=== PATIENT | female | born 1985 | race Caucasian/White ===

== ENCOUNTER 2016-05-18 22:30 | Emergency (ER) | payer BC, OTHER ==
[2016-05-18 22:43] VITALS: BP 113/58; PULSE 89; TEMP 98; BMI 22.8
--- NOTE | 2016-05-18 22:49 | PDOC ---
History of Present Illness - History of Present Illness Initial Comments: 05/18/16 22:53 Patient is a 31 year old female, with recent medical hx of D&C (05/18/16), who is presenting to the ED with fever, body aches, nausea, abdominal pain and diarrhea since this afternoon. The patient reports having generalized abdominal pain that is localized to her mid-abdomen. She reports having some nausea and episodes of diarrhea but no vomiting. The patient also took Advil today at 4PM. Patient was hyperventilating on arrival and complains of cramping to her hands. Denies cough or sick contacts. <An Miles - Last Filed: 05/18/16 22:53> <Christina Duke - Last Filed: 05/19/16 00:57> - General Chief Complaint: Diarrhea Stated Complaint: SYNCOPE Time Seen by Provider: 05/18/16 22:36 Past History <An Miles - Last Filed: 05/18/16 22:53> - Immunization History Immunization Up to Date: No - Psycho/Social/Smoking Cessation Hx Anxiety: No Suicidal Ideation: No Smoking History: Never smoked Information on smoking cessation initiated: No Hx Alcohol Use: No Drug/Substance Use Hx: No Substance Use Type: None <Christina Duke - Last Filed: 05/19/16 00:57> - Past Medical History Allergies/Adverse Reactions: Allergies Allergy/AdvReac Type Severity Reaction Status Date / Time No Known Allergies Allergy Verified 05/18/16 22:44 Home Medications: Ambulatory Orders Levothyroxine Sodium [Synthroid] 88 mcg PO DAILY 05/18/16 Ondansetron [Zofran Odt -] 4 mg SL TID PRN #12 od.tablet 05/19/16 Review of Systems - Review of Systems Comments:: 05/18/16 22:58 CONSTITUTIONAL: Present: fever, chills Absent: diaphoresis, generalized weakness, malaise, loss of appetite HEENT: Absent: rhinorrhea, nasal congestion, throat pain, throat swelling, difficulty swallowing, mouth swelling, ear pain, eye pain, visual changes CARDIOVASCULAR: Absent: chest pain, syncope, palpitations, irregular heart rate, lightheadedness , peripheral edema RESPIRATORY: Absent: cough, shortness of breath, dyspnea with exertion, orthopnea, wheezing, stridor, hemoptysis GASTROINTESTINAL: Present: abdominal pain, nausea, diarrhea Absent: abdominal distension, vomiting, constipation, melena, hematochezia GENITOURINARY: Absent: dysuria, frequency, urgency, hesitancy, hematuria, flank pain, genital pain MUSCULOSKELETAL: Present: myalgia, hand cramping Absent: arthralgia, joint swelling SKIN: Absent: rash, itching, pallor HEMATOLOGIC/IMMUNOLOGIC: Absent: easy bleeding, easy bruising, lymphadenopathy, frequent infections ENDOCRINE: Absent: unexplained weight gain, unexplained weight loss, heat intolerance, cold intolerance NEUROLOGIC: Absent: headache, focal weakness or paresthesia, dizziness, unsteady gait, seizure, mental status changes, bladder or bowel incontinence. PSYCHIATRIC: Absent: anxiety, depression, suicidal or homicidal ideation, hallucinations <An Miles - Last Filed: 05/18/16 22:53> *Physical Exam - Vital Signs Last Vital Signs Temp Pulse Resp BP Pulse Ox 98.0 F 89 18 113/58 100 05/18/16 22:41 05/18/16 22:41 05/18/16 22:41 05/18/16 22:41 05/18/16 22:41 - Physical Exam Comments: 05/18/16 23:00 GENERAL: Well developed, well nourished. Awake and alert. Hyperventilating. HEENT: Normocephalic, atraumatic. PERRLA, EOMI. No conjunctival pallor. Sclera are non- icteric. Moist mucous membranes. Oropharynx is clear. NECK: Supple. Full ROM. No JVD. Carotid pulses 2+ and symmetric, without bruits. No thyromegaly. No lymphadenopathy. CARDIOVASCULAR: Regular rate and rhythm. No murmurs, rubs, or gallops. Distal pulses are 2+ and symmetric. PULMONARY: No evidence of respiratory distress. Lungs clear to auscultation bilaterally. No wheezing, rales or rhonchi. ABDOMINAL: Soft. Non-tender. Non-distended. No rebound or guarding. No organomegaly. Normoactive bowel sounds. MUSCULOSKELETAL: Cramped hands. Normal range of motion at all joints. No bony deformities or tenderness. No CVA tenderness. EXTREMITIES: No cyanosis. No clubbing. No edema. No calf tenderness. SKIN: Warm and dry. Normal capillary refill. No rashes. No jaundice. NEUROLOGICAL: Alert, awake, appropriate. Cranial nerves 2-12 intact. Normal speech. Toes are down-going bilaterally. Gait is normal without ataxia. PSYCHIATRIC: Cooperative. Good eye contact. Appropriate mood and affect. <An Miles - Last Filed: 05/18/16 22:53> - Vital Signs Last Vital Signs Temp Pulse Resp BP Pulse Ox 98.0 F 89 18 113/58 100 05/18/16 22:41 05/18/16 22:41 05/18/16 22:41 05/18/16 22:41 05/18/16 22:41 <Christina Duke - Last Filed: 05/19/16 00:57> ED Treatment Course - LABORATORY CBC & Chemistry Diagram: 05/18/16 23:00 05/18/16 23:00 <Christina Duke - Last Filed: 05/19/16 00:57> Medical Decision Making - Medical Decision Making 05/19/16 00:47 31-year-old female brought in by ambulance after having abdominal cramping, diarrhea, body aches that started this afternoon. She was distressed and very anxious and had a hyperventilation with cramping in her hands Her daughter had a gastroenteritis a few days ago The patient says she had been , but had a demise and had a D&C by Dr. Corrigan last week She had taken Advil prior to arrival. She said she actually took it about 4 the afternoon. She had a benign abdominal exam with no focal tenderness, rebound or guarding She has stable vital signs CBC reveals WBC count of 10 Chemistries showed CO2 of 19, and the patient received a liter of IV fluids There was a mild hypokalemia of 3.3. The patient received potassium supplement -Negative Urinalysis Patient is calm now. She is not had any vomiting or diarrhea while in the emergency department. Impression viral illness/gastroenteritis <Christina Duke - Last Filed: 05/19/16 00:57> *DC/Admit/Observation/Transfer - Attestations Scribe Attestion: 05/18/16 23:03 Documentation prepared by An Miles, acting as senior medical director for Christina Duke MD. <An Miles - Last Filed: 05/18/16 22:53> <Christina Duke - Last Filed: 05/19/16 00:57> Diagnosis at time of Disposition: Gastroenteritis - Discharge Dispostion Disposition: HOME Condition at time of disposition: Stable - Prescriptions Prescriptions: Ondansetron [Zofran Odt -] 4 mg SL TID PRN #12 od.tablet PRN Reason: Nausea And/Or Vomiting - Patient Instructions Printed Discharge Instructions: DI for Viral Gastroenteritis -- Adult Additional Instructions: please pear picker your medication at your pharmacy return for any persistent or worsening symptoms
[2016-05-18] MEDS ORDERED: ONDANSETRON 4 MG/2 ML VIAL IVPUSH ONE (22:50)
[2016-05-18] MEDS ORDERED: SODIUM CHLORIDE 1,000 ML IV STA (22:50)
[2016-05-18] MEDS ORDERED: ONDANSETRON 4 MG/2 ML VIAL ONE (22:53)
[2016-05-18 23:09] LABS: BASOPHIL 0.2 % (0-2.0); EOSINOPHIL 0.2 % (0-4.5); MCH 30.3 pg (25.7-33.7); MCHC 33.4 g/dl (32.0-36.0); MEAN CELL VOLUME 90.6 fl (80-96); MEAN PLT VOLUME 9.4 fl (7.5-11.1); NEUTROPHILS 86.7 % (42.8-82.8); PLATELET COUNT 217 K/MM3 (134-434); RDW 12.5 % (11.6-15.6); WHITE BLOOD COUNT 10.3 K/mm3 (4.0-10.0)
[2016-05-18 23:36] LABS: ALBUMIN 3.5 g/dl (3.4-5.0); ALK PHOS 53 U/L (45-117); ANION GAP 13 (8-16); BILIRUBIN,TOTAL 0.6 mg/dL (0.2-1.0); CALCIUM 8.5 mg/dL (8.5-10.1); CO2 19 mmol/L (21-32); CREATININE 0.7 mg/dL (0.55-1.02); GLUCOSE,RANDOM 106 mg/dL (74-106); SGOT/AST 28 U/L (15-37); SGPT/ALT 24 U/L (12-78); TOT PROT 7.1 g/dl (6.4-8.2)
[2016-05-19] MEDS ORDERED: POTASSIUM CHLORIDE TABS 20 MEQ TABLET.ER (FP) PO ONE ×2 (00:09→00:20)
[2016-05-19] MEDS ORDERED: IBUPROFEN 600 MG TABLET (FP) PO ONE (00:12)
[2016-05-19 00:21] LABS: URINE APPEARANCE CLEAR; URINE BILIRUBIN NEGATIVE (NEGATIVE); URINE BLOOD NEGATIVE (NEGATIVE); URINE COLOR LTYELLOW; URINE GLUCOSE (UA) NEGATIVE (NEGATIVE); URINE KETONE NEGATIVE (NEGATIVE); URINE LEUK ESTERASE NEGATIVE (NEGATIVE); URINE NITRITE NEGATIVE (NEGATIVE); URINE PROTEIN NEGATIVE (NEGATIVE); URINE UROBILINOGEN NEGATIVE E.U./dl (0.2-1.0)
[2016-05-19] MEDS ORDERED: IBUPROFEN 400 MG TABLET (FP) PO ONE (00:21)
== END 2016-05-19 01:01 | disposition home or self-care (01) ==
LOC: JER 22:30
PROC: 3E033GC Introduction of Other Therapeutic Substance into Peripheral Vein, Percutaneous Approach (ICD-10-PCS; principal; 2016-05-18)
DX: A08.4 Viral intestinal infection, unspecified (principal); B97.89 Other viral agents as the cause of diseases classified elsewhere; Z98.890 Other specified postprocedural states
CPT/HCPCS: 36415; 80053; 81003; 85025; 99281-25